=== PATIENT | male | born 1945 | race Caucasian/White ===

== ENCOUNTER 2019-07-14 09:29 | Emergency (ER) | payer OTHER, BC ==
[~2019-07-14] VITALS: Ht 167.6 cm; Wt 84.4 kg
[~2019-07-14 09:29] MED LIST: ASA81 MG; CARVEDILOL12.5 MG; CIPRO500 MG PO; COREG CR10 MG; CRESTOR20 MG; FLAGYL500MG PO; INTESTINEX1 CA1 PO; LISINOPRIL10 MG
== END 2019-07-14 12:50 | disposition home or self-care (01) ==
LOC: ER 09:29
DX: J32.4 Chronic pansinusitis (principal); D72.821 Monocytosis (symptomatic)

== ENCOUNTER 2019-09-15 13:57 | Outpatient (CLI) | payer OTHER, BC | END 2019-09-15 14:11 | disposition home or self-care (01) | LOC: SONOGRAMA 13:57 | DX: N50.811 Right testicular pain (principal) ==

== ENCOUNTER 2020-01-09 15:53 | Outpatient (CLI) | payer OTHER | END 2020-01-10 14:48 | disposition home or self-care (01) | LOC: OFIC 805 15:53 | DX: J32.8 Other chronic sinusitis (principal); J30.89 Other allergic rhinitis; J34.89 Other specified disorders of nose and nasal sinuses; R09.81 Nasal congestion | CPT/HCPCS: 31231; 99203; G0463 ==

== ENCOUNTER 2023-01-12 06:28 | Day surgery (SDC) | payer OTHER, BC | END 2023-01-12 12:05 | disposition home or self-care (01) | LOC: AMB-ENDOS 06:28 | PROVIDERS: ATTEND Internal Medicine Gastroenterology | DX: K63.5 Polyp of colon (principal); K57.30 Diverticulosis of large intestine without perforation or abscess without bleeding; Z20.822 Contact with and (suspected) exposure to COVID-19 ==

== ENCOUNTER 2025-06-13 09:48 | Emergency (ER) | payer OTHER, BC ==
[~2025-06-13] VITALS: Ht 167.6 cm; Wt 74.4 kg
[2025-06-13] MEDS ORDERED: SYMBICORT 80/10.2 GM IH (10:13)
[2025-06-13] MEDS ORDERED: DOXAZOSIN MESYLA4 MG PO (10:13)
[2025-06-13] MEDS ORDERED: ALLOPURINOL300 MG PO (10:13)
[2025-06-13] MEDS ORDERED: DEXAMETHASONE SODIUM PHOSPHATE 4 MG/ML VIAL ONE (10:17)
[2025-06-13] MEDS ORDERED: DEXAMETHASONE SODIUM PHOSPHATE 4 MG/ML VIAL IM ONE (10:30)
[2025-06-13 10:53] LABS: BASO % 0.4 % (0.1-1.2); EOS # 0.04 (0.04-0.54); EOS % 0.8 % (0.7-7.0); LYMPH # 1.08 (1.18-3.74); LYMPH % 21.8 % (19.3-53.1); MEAN PLATELET VOLUME 9.40 fl (9.4-12.4); MONO # 1.03 (0.24-0.82); NEUT # 2.77 (1.56-6.13); NEUT % 56.0 % (34.0-71.1); RED CELL DISTRIBUTION WIDTH 13.2 % (11.6-14.4)
[2025-06-13 11:10] LABS: MONO % 20.8 % (4.7-12.5)
[2025-06-13 11:31] LABS: COVID-19 AG NEGATIVE (NEGATIVE)
[2025-06-13] MEDS ORDERED: DYMISTA NASAL S23 GM IH (11:46)
[2025-06-13] MEDS ORDERED: LEVOFLOXACIN750 MG PO (11:46)
== END 2025-06-13 12:11 | disposition home or self-care (01) ==
LOC: ER 09:48
PROVIDERS: General Practice
DX: J01.00 Acute maxillary sinusitis, unspecified (principal); Z20.822 Contact with and (suspected) exposure to COVID-19
CPT/HCPCS: 36415; 70220; 71046; 96372; 99283; J1100